=== PATIENT | male | born 1960 | race Hispanic/Latino ===

== ENCOUNTER 2017-05-18 05:45 | Emergency (ER) | payer SELFPAY ==
[2017-05-18 06:05] VITALS: BP 154/100
--- NOTE | 2017-05-18 08:20 | Emergency Department Report ---
HPI - General Chief Complaint: Upper Respiratory Infection Time Seen by Provider: 05/18/17 07:51 - HPI HPI: Patient is a 56-year-old male presents to the ED complaining of nonproductive dry cough for the past 2 days. Patient states he took some DayQuil and NyQuil that gives him some relief. Patient states cough and has become intermittent throughout the day and is increased. Signed he denies fevers/chills/nausea/vomiting shortness of breath or any other problems. ED Past Medical Hx - Past Medical History Previous Medical History?: No - Surgical History Past Surgical History?: No - Social History Smoking Status: Never Smoker Substance Use Type: None - Medications Home Medications: Home Medications Medication Instructions Recorded Confirmed Last Taken Type Acetamin/Codeine 120-12Mg/5 ml 5 ml PO TID PRN #75 ml 05/18/17 Unknown Rx [Tylenol/Codeine] Amoxicillin/K Clav Tab [Augmentin 1 tab PO Q12HR #10 tab 05/18/17 Unknown Rx 875 mg] Benzonatate [Tessalon Perles] 100 mg PO Q8HR #21 capsule 05/18/17 Unknown Rx ED Review of Systems ROS: Stated complaint: COUGHING Other details as noted in HPI Constitutional: denies: chills, fever Eyes: denies: eye pain, eye discharge, vision change ENT: denies: ear pain, throat pain, dental pain, hearing loss Respiratory: cough. denies: shortness of breath, wheezing Cardiovascular: denies: chest pain, palpitations Endocrine: no symptoms reported Gastrointestinal: denies: abdominal pain, nausea, diarrhea Genitourinary: denies: urgency, dysuria Musculoskeletal: denies: back pain, joint swelling, arthralgia Skin: denies: rash, lesions Neurological: denies: headache, weakness, paresthesias Psychiatric: denies: anxiety, depression Hematological/Lymphatic: denies: easy bleeding, easy bruising Physical Exam - Physical Exam Vital Signs: Vital Signs 05/18/17 05:59 Temperature 98.8 F Pulse Rate 96 H Respiratory 20 Rate Blood Pressure 154/100 O2 Sat by Pulse 98 Oximetry Physical Exam: GENERAL: Alert and oriented x3, no apparent distress, Normal Gait, atraumatic. HEAD: Head is normocephalic and a-traumatic. EYES: Extra ocular muscles are intact. Pupils are equal, round, and reactive to light and accommodation. Sclerae white, nonerythematous bilaterally EARS: symetrical, atraumatic, non tender, ear canal clear and moderate cerumen, tympanic membrance non inflamed. Serous fluid in the ears. Tympanic membranes bilaterally. Gross auditory nml bilaterally. NOSE: Nose symetrical, Nontender,Nares appeared normal. Maxillary sinus tenderness MOUTH:Mouth is well hydrated and without lesions. Tonsils nonerythematous or swollen, Uvula midline, Tongue not elevated. Mucous membranes are moist. Posterior pharynx clear, no exudate or lesions. Patent airways. NECK: Supple. Non edematous, No carotid bruits. No lymphadenopathy or thyromegaly. No C-spine tenderness LUNGS: Symetrical with respiration, No wheezing, no rales or crackles, CTAB. HEART: S1, S2 present, regular rate and rhythm without murmur, no rubs, no gallops. Non tender to palpation ABDOMEN: No organomegaly was noted,Positive bowel sounds, soft, and non- distended. . Nontender to palpation on all Quadrants, NO CVA SKIN: Warm and dry, No lesions, No ulceration or induration present. ED Course Vital Signs 05/18/17 05:59 Temperature 98.8 F Pulse Rate 96 H Respiratory 20 Rate Blood Pressure 154/100 O2 Sat by Pulse 98 Oximetry ED Medical Decision Making - Medical Decision Making 56-year-old male presents. 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 Discussed with patient to return to the ED if symptoms worsen he is alert and oriented 3 and understands instructions given Vital signs are stable, patient has an uneventful ED stay patient is in acute distress. Critical care attestation.: If time is entered above; I have spent that time in minutes in the direct care of this critically ill patient, excluding procedure time. ED Disposition Clinical Impression: Bronchitis Sinusitis Qualifiers: Sinusitis location: maxillary Chronicity: acute Recurrence: non-recurrent Qualified Code(s): J01.00 - Acute maxillary sinusitis, unspecified Disposition: TO HOME OR SELFCARE Is pt being admited?: No Does the pt Need Aspirin: No Condition: Stable Instructions: Sinusitis (ED), Upper Respiratory Infection (ED), Acute Bronchitis (ED), Chronic Bronchitis (ED) Prescriptions: Acetamin/Codeine 120-12Mg/5 ml [Tylenol/Codeine] 5 ml PO TID PRN #75 ml PRN Reason: Pain Amoxicillin/K Clav Tab [Augmentin 875 mg] 1 tab PO Q12HR #10 tab Benzonatate [Tessalon Perles] 100 mg PO Q8HR #21 capsule Referrals: PRIMARY CARE, [Primary Care Provider] - 3-5 Days Forms: Work/School Release Form(ED) Time of Disposition: 08:25
== END 2017-05-18 08:41 | disposition home or self-care (01) ==
LOC: ED 05:45
DX: J01.00 Acute maxillary sinusitis, unspecified (principal); J40 Bronchitis, not specified as acute or chronic
CPT/HCPCS: 99282

== ENCOUNTER 2020-12-08 00:31 | Observation (INO) | payer OTHER ==
[2020-12-08] MEDS ORDERED: ASPIRIN 325 MG TAB PO ONE ×2 (02:07→07:15)
--- NOTE | 2020-12-08 02:30 | XRay Report ---
CHEST 2 VIEWS INDICATION / CLINICAL INFORMATION: chestpain. COMPARISON: None available. FINDINGS: SUPPORT DEVICES: None. HEART / MEDIASTINUM: No significant abnormality. LUNGS / PLEURA: No significant pulmonary or pleural abnormality. No pneumothorax. ADDITIONAL FINDINGS: No significant additional findings. IMPRESSION: 1. No acute findings. Signer Name: Ty Stone MD Signed: 12/08/2020 2:26 AM Workstation Name: [id number]
[2020-12-08] MEDS ORDERED: ONDANSETRON 4 MG/2 ML INJ IV ONE (03:08)
[2020-12-08] MEDS ORDERED: fentaNYL 100 MCG/2 ML INJ IV ONE (03:08)
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
[2020-12-08 03:33] LABS: Alanine Aminotransferase 19 units/L (7-56); Albumin 4.6 g/dL (3.9-5); BUN/Creatinine Ratio 18; Blood Urea Nitrogen 14 mg/dL (9-20); Calcium 9.1 mg/dL (8.4-10.2); Hemolysis Index 15
[2020-12-08 03:45] LABS: Basophils # (Auto) 0.1 K/mm3 (0.0-0.1); Basophils % (Auto) 0.9 % (0.0-1.8); Eosinophils % (Auto) 0.2 % (0.0-4.3); Hematocrit 47.7 % (35.5-45.6); Hemoglobin 16.9 gm/dl (11.8-15.2); Lymphocytes % (Auto) 26.2 % (13.4-35.0); Mean Corpuscular HGB Conc 35 % (32-34); Mean Corpuscular Volume 88 fl (84-94); Monocytes # (Auto) 0.3 K/mm3 (0.0-0.8); Platelet Count 216 K/mm3 (140-440); Red Blood Count 5.45 M/mm3 (3.65-5.03)
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
[2020-12-08] MEDS ORDERED: NITROGLYCERIN 0.4 MG TAB SUBL SL PRN (12:00)
[2020-12-08] MEDS ORDERED: oxyCODONE /ACETAMINOPHEN 5-325MG TAB PO PRN (12:00)
[2020-12-08] MEDS ORDERED: traMADol 50 MG TAB PO PRN (12:00)
[2020-12-08] MEDS ORDERED: hydrALAZINE 20 MG/1 ML INJ IV PRN (12:00)
[2020-12-08] MEDS ORDERED: ACETAMINOPHEN 325 MG TAB PO PRN ×2 (12:00)
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
[2020-12-08 13:26] LABS: Basophils % (Auto) 0.4 % (0.0-1.8); Eosinophils % (Auto) 0.7 % (0.0-4.3); Lymphocytes # (Auto) 1.8 K/mm3 (1.2-5.4); Lymphocytes % (Auto) 34.9 % (13.4-35.0); Mean Corpuscular HGB Conc 36 % (32-34); Mean Corpuscular Volume 86 fl (84-94); Monocytes # (Auto) 0.3 K/mm3 (0.0-0.8); Monocytes % (Auto) 6.5 % (0.0-7.3); Platelet Count 217 K/mm3 (140-440); Red Blood Count 5.39 M/mm3 (3.65-5.03); Red Cell Distribution Width 14.2 % (13.2-15.2)
[2020-12-08 13:27] LABS: Hematocrit 46.5 % (35.5-45.6); Hemoglobin 16.6 gm/dl (11.8-15.2)
[2020-12-08 13:53] LABS: BUN/Creatinine Ratio 16; Blood Urea Nitrogen 14 mg/dL (9-20); Chol/HDL Ratio 3.78 %; HDL Cholesterol 42 mg/dL (40-59); Hemolysis Index 6; LDL Cholesterol,Direct 119 mg/dL (50-130)
--- NOTE | 2020-12-08 14:04 | Electrocardiograph Report ---
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
--- NOTE | 2020-12-08 14:05 | Electrocardiograph Report ---
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
[2020-12-08] MEDS: HEPARIN 5,000 UNIT/1 ML VIAL SUB-Q SCH ×2 (14:22→22:36)
[2020-12-08] MEDS: METOPROLOL TARTRATE 25 MG TAB PO SCH (22:36)
[2020-12-08] MEDS: DOCUSATE SODIUM 100 MG CAP PO SCH (22:36)
[2020-12-08] MEDS: FAMOTIDINE 10 MG TAB PO SCH (22:36)
[2020-12-09] MEDS: HEPARIN 5,000 UNIT/1 ML VIAL SUB-Q SCH (06:54)
[2020-12-09] MEDS ORDERED: ASPIRIN 325 MG TAB PO SCH (10:00)
[2020-12-09] MEDS: FAMOTIDINE 10 MG TAB PO SCH (10:05)
[2020-12-09] MEDS: DOCUSATE SODIUM 100 MG CAP PO SCH (10:06)
[2020-12-09] MEDS: METOPROLOL TARTRATE 25 MG TAB PO SCH (10:09)
[2020-12-09] MEDS ORDERED: METOPROLOL TARTRATE 25 MG TAB PO SCH (11:00)
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
[2020-12-09] MEDS ORDERED: METOPROLOL TARTRATE 25 MG TAB PO NR (12:00)
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
[2020-12-09 13:01] VITALS: BP 155/92
[2020-12-09] MEDS ORDERED: METOPROLOL TARTRATE 50 MG TAB PO SCH (22:00)
== END 2020-12-09 15:28 | disposition home or self-care (01) ==
LOC: ED 00:31 → 4A 09:30
PROVIDERS: ADMIT Internal Medicine; ATTEND Internal Medicine
DX: R07.89 Other chest pain (principal); R94.31 Abnormal electrocardiogram [ECG] [EKG]; F17.210 Nicotine dependence, cigarettes, uncomplicated; R03.0 Elevated blood-pressure reading, without diagnosis of hypertension; R51.9 Headache, unspecified; R10.9 Unspecified abdominal pain; Z79.82 Long term (current) use of aspirin; V43.92XA Unspecified car occupant injured in collision with other type car in traffic accident, initial encounter; Y93.89 Activity, other specified; Y92.89 Other specified places as the place of occurrence of the external cause; Y99.8 Other external cause status
CPT/HCPCS: 36415; 70450; 71046; 72125; 74177; 80053; 80061; 84484; 85025; 93005; 96372; 96374; 96375; 99285; A9270; G0378; J1644; J2405; J3010; Q9967; 80048